=== PATIENT | female | born 1965 | race Asian ===

== ENCOUNTER 2022-04-01 13:53 | Emergency (ER) | payer MEDICAID ==
[~2022-04-01] VITALS: Ht 152.4 cm; Wt 72.6 kg
[2022-04-01 14:00] VITALS: BP_SYST 198
--- NOTE | 2022-04-01 14:00 | NUR ---
Patient to ER bed h1 to gown for evaluation. Side rails up.
--- NOTE | 2022-04-01 14:15 | NUR ---
ER at bedside examining patient.
[2022-04-01] MEDS ORDERED: AMLO5TAB4 PO (14:35)
[2022-04-01] MEDS ORDERED: ACETAMINOPHEN 500 MG TABLET PO ONE (14:45)
[2022-04-01] MEDS ORDERED: cloNIDine HCL 0.1 MG TABLET PO ONE (14:45)
--- NOTE | 2022-04-01 14:52 | NUR ---
attempted to administer medications as per EMAR, handed to pt and explained medication and indication. pt placed in hand however did not take them. pt noted by x2 tire and tube repairer at bedside that pt was holding medications in hand. retrieved medications back from pt and informed md that pt refused both medications
--- NOTE | 2022-04-01 15:06 | NUR ---
d/c instructions handed to officer mona #[id number]. pt ambulated with steady gait with x2 officers
== END 2022-04-01 15:04 ==
LOC: SED 13:53
DX: I10 Essential (primary) hypertension (principal); R51.9 Headache, unspecified; Z79.899 Other long term (current) drug therapy
CPT/HCPCS: 99283